=== PATIENT | female | born 1980 | race Caucasian/White ===

== ENCOUNTER → 2018-01-12 11:40 | Outpatient (CLI) | payer SELFPAY ==
[2018-01-12 14:42] LABS: Urine N gonorrhoeae NOT DETECTED
[2018-01-12 14:51] LABS: Urine Chlamydia NOT DETECTED
== END ==
PROVIDERS: Family Provider Family Medicine; PCP Family Medicine; Visit Provider Obstetrics & Gynecology
DX: Z76.89 Persons encountering health services in other specified circumstances (principal)
CPT/HCPCS: 87491; 87591

== ENCOUNTER → 2018-03-31 16:48 | Outpatient (CLI) | payer SELFPAY | PROVIDERS: Family Provider Family Medicine; PCP Family Medicine; Visit Provider Physician Assistant | DX: L03.019 Cellulitis of unspecified finger (principal) | CPT/HCPCS: 87070; 87075; 87077; 87147; 87205 ==

== ENCOUNTER → 2018-12-08 16:27 | Outpatient (CLI) | payer OTHER, SELFPAY ==
[2018-12-08 19:09] LABS: Urine N gonorrhoeae NOT DETECTED
[2018-12-08 19:14] LABS: HIV 1 and 2 Antibody NEGATIVE (NEGATIVE); Hepatitis B Surface Antigen NEGATIVE s/c (NEGATIVE)
[2018-12-08 19:20] LABS: Urine Chlamydia NOT DETECTED
[2018-12-10 10:39] LABS: RPR Screen Nonreactive (Nonreactive)
[2018-12-10 17:28] LABS: HSV 2 IGG AB < 0.90 index (< 0.90); HSV1IGG < 0.90 index (< 0.90)
[2018-12-11 09:20] LABS: Hepatitis B Core Antibody Nonreactive (Nonreactive)
== END ==
PROVIDERS: Visit Provider Obstetrics & Gynecology
DX: Z20.2 Contact with and (suspected) exposure to infections with a predominantly sexual mode of transmission (principal)
CPT/HCPCS: 36415; 86592; 86695; 86696; 86703; 86704; 87340; 87491; 87591

== ENCOUNTER → 2019-06-06 14:46 | Outpatient (CLI) | payer OTHER, SELFPAY ==
[2019-06-06 15:58] LABS: Appearance Urine UA CLEAR
[2019-06-06 16:04] LABS: Color Urine UA ORANGE
[2019-06-06 16:07] LABS: Bacteria Urine Few (2-10); Culture Indicated Urine Specimen Cultured; RBC Urine 0-1/HPF (0-5/HPF); Renal Epithelial Cells Urine 0-1/HPF (0-1/HPF); Squamous Epithelial Cell Urine 1-5 /HPF (0-5/HPF); Transitional Epi Cells Urine 0-1/HPF (0-5/HPF); WBC Urine 10-30/HPF (0-5/HPF)
== END ==
PROVIDERS: Visit Provider Obstetrics & Gynecology
DX: N39.0 Urinary tract infection, site not specified (principal); R30.9 Painful micturition, unspecified
CPT/HCPCS: 81001; 87077; 87086; 87186

== ENCOUNTER → 2019-06-22 11:13 | Outpatient (CLI) | payer OTHER, SELFPAY ==
[2019-06-22 11:23] LABS: RBC Urine None Seen (0-5/HPF)
[2019-06-22 12:14] LABS: Appearance Urine UA CLEAR; Bilirubin Urine UA NEGATIVE (NEGATIVE); Color Urine UA YELLOW; Glucose Urine UA NEGATIVE (Negative); Ketones Urine UA NEGATIVE (NEGATIVE); Leukocyte Esterase Urine UA NEGATIVE (NEGATIVE); Nitrite Urine UA NEGATIVE (Negative); Occult Blood Urine UA NEGATIVE (Negative); Protein Urine UA NEGATIVE (Negative); Specific Gravity Urine UA <=1.005 (1.000-1.035); Urobilinogen Urine UA 0.2 E.U./dL (0.2)
[2019-06-22 12:26] LABS: Bacteria Urine Occasional (0-1); Culture Indicated Urine Cult Not Indicated; Squamous Epithelial Cell Urine 0-1 /HPF (0-5/HPF); WBC Urine 0-1/HPF (0-5/HPF)
[2019-06-22 13:43] LABS: Urine N gonorrhoeae NOT DETECTED
[2019-06-22 13:50] LABS: Urine Chlamydia NOT DETECTED
== END ==
PROVIDERS: Visit Provider Obstetrics & Gynecology
DX: Z11.3 Encounter for screening for infections with a predominantly sexual mode of transmission (principal); R30.0 Dysuria
CPT/HCPCS: 81001; 87491; 87591

== ENCOUNTER → 2019-06-28 11:44 | Outpatient (CLI) | payer OTHER, SELFPAY | PROVIDERS: Visit Provider Physician Assistant | DX: J02.9 Acute pharyngitis, unspecified (principal) | CPT/HCPCS: 87070 ==